=== PATIENT | male | born 1980 | race Caucasian/White ===

== ENCOUNTER 2017-06-13 08:53 | Day surgery (SDC) | payer OTHER ==
[2017-06-13] MEDS ORDERED: ceFAZolin 2 GM/SWFI 2 GM/20 ML SYR IVP ONE (09:09)
[2017-06-13] MEDS ORDERED: LR 1,000 ML IV ONE (09:11)
[2017-06-13] MEDS ORDERED: LIDOCAINE 1% 2 ML INJ ID PRN (09:11)
[2017-06-13 09:17] VITALS: PULSE 71
[2017-06-13] MEDS ORDERED: BUPIVACAINE 0.5% 30 ML SDV ONE (09:30)
[2017-06-13] MEDS ORDERED: MIDAZOLAM 2 MG/2 ML VIAL IVP ONE (10:33)
--- NOTE | 2017-06-13 10:33 | PDANEPAE ---
ANE History of Present Illness Supraumbilical ventral hernia ANE Past Medical History - Cardiovascular History Hx Hypertension: No Hx Arrhythmias: No Hx Chest Pain: No Hx Coronary Artery / Peripheral Vascular Disease: No Hx CHF / Valvular Disease: No Hx Palpitations: No - Pulmonary History Hx COPD: No Hx Asthma/Reactive Airway Disease: No Hx Recent Upper Respiratory Infection: No Hx Oxygen in Use at Home: No Hx Sleep Apnea: No Sleep Apnea Screening Result - Last Documented: Negative - Neurologic History Hx Cerebrovascular Accident: No Hx Seizures: No Hx Dementia: No - Endocrine History Hx Diabetes: No - Renal History Hx Renal Disorders: No - Liver History Hx Hepatic Disorders: No - Neurological & Psychiatric Hx Hx Neurological and Psychiatric Disorders: No - Cancer History Hx Cancer: No - Congenital Disorder History Hx Congenital Disorders: No - GI History Hx Gastrointestinal Disorders: No - Other Health History Other Health History: umbilical hernia-new onset of pain on R side of abd - Chronic Pain History Chronic Pain: No - Surgical History Prior Surgeries: none known ANE Review of Systems Review of Systems: - Exercise capacity METS (RN): 4 METS ANE Patient History - Allergies Allergies/Adverse Reactions: No Allergies [NKDA] Allergy (Verified 06/12/17 17:36) - Home Medications Home medications: none - NPO status NPO Since - Liquids (Date): 06/13/17 NPO Since - Liquids (Time): 08:00 NPO Since - Solids (Date): 06/12/17 NPO Since - Solids (Time): 19:00 - Anes Hx Anes Hx: no prior problems - Smoking Hx Smoking Status: Never smoked ANE Labs/Vital Signs - Vital Signs Blood Pressure: 131/92 Heart Rate: 71 Respiratory Rate: 16 O2 Sat (%): 94 Height: 180.34 cm Weight: 86.183 kg ANE Physical Exam - Airway Neck exam: FROM Mallampati Score: Class 1 Mouth exam: normal dental/mouth exam - Pulmonary Pulmonary: no respiratory distress - Cardiovascular Cardiovascular: regular rate and rhythym - ASA Status ASA Status: I ANE Anesthesia Plan Anesthesia Plan: GA w LMA
[2017-06-13] MEDS ORDERED: LIDOCAINE 2% 5 ML SDV ONE (10:40)
[2017-06-13] MEDS ORDERED: PROPOFOL 200 MG/20 ML VIAL ONE (10:41)
[2017-06-13] MEDS ORDERED: fentaNYL 100 MCG/2 ML INJ ONE ×3 (10:41→12:19)
[2017-06-13] MEDS ORDERED: GLYCOPYRROLATE 0.2 MG/1 ML VIAL ONE (10:42)
[2017-06-13] MEDS ORDERED: METOCLOPRAMIDE 10 MG/2 ML VIAL ONE (10:43)
--- NOTE | 2017-06-13 10:45 | PDHPUP ---
History & Physical Update H&P update statement: This history and physical update is based on an assessment of the patient which was completed after admission or registration (within 24 hours), but prior to the surgery/procedure. H&P update: H&P reviewed & patient examined, no change in patient's condition since H&P completed
[2017-06-13] MEDS ORDERED: ROCURONIUM 50 MG/5 ML VIAL ONE (11:02)
[2017-06-13] MEDS ORDERED: ONDANSETRON 4 MG/2 ML VIAL IVP PRN (11:14)
[2017-06-13] MEDS ORDERED: NALOXONE HCL 0.4 MG/ML INJ IVP PRN (11:14)
[2017-06-13] MEDS ORDERED: PROMETHAZINE HCL 25 MG/ML INJ IVP PRN (11:14)
[2017-06-13] MEDS ORDERED: ONDANSETRON 4 MG/2 ML VIAL ONE ×2 (11:27→14:52)
[2017-06-13] MEDS ORDERED: DEXAMETHASONE 4 MG/ML VIAL ONE (11:27)
[2017-06-13] MEDS ORDERED: HYDROmorphONE/DILAUDID 1 MG/ML INJ ONE (11:55)
--- NOTE | 2017-06-13 11:55 | POSTANESTH ---
Post Anesthetic Evaluation Cardiovascular Status: Tx Hyper/Hypo-tension Respiratory Status: Normal, Stable Level of Consciousness/Mental Status: Can Participate in Eval Pain Control: Inadeq, Add Tx Required Nausea/Vomiting Control: Adequate, Prn Tx Ordered Complications Possibly Related to Anesthesia: None Noted
[2017-06-13] MEDS: fentaNYL 100 MCG/2 ML INJ IVP PRN ×3 (11:57→12:22)
[2017-06-13] MEDS: HYDROmorphONE/DILAUDID 1 MG/ML INJ IVP PRN ×3 (11:58→12:36)
--- NOTE | 2017-06-13 12:00 | POSTOPPROG ---
Post Op Note Date of Operation: 06/13/17 Surgeon: Jose Raul Blanca Electronics Tech: Tracy Solorzano Anesthesiologist: Kolton Cason Anesthesia: GET(General Endotracheal) Pre-op Diagnosis: supraumbilical ventral hernia Post-op Diagnosis: same, and umbilical hernia Procedure: open repair of Vh and umbilical hernia with mesh Inf/Abcess present in the surg proc area at time of surgery?: No EBL: Minimal Complications: none
[2017-06-13] MEDS ORDERED: KETOROLAC 30 MG/1 ML SDV ONE (12:18)
[2017-06-13] MEDS ORDERED: LABETALOL HCL 5 MG/ML 20 ML MDV ONE (12:18)
[2017-06-13] MEDS ORDERED: LABETALOL HCL 5 MG/ML 20 ML MDV IV ONE (12:45)
[2017-06-13] MEDS ORDERED: KETOROLAC 30 MG/1 ML SDV IVP ONE (12:45)
[2017-06-13 13:16] VITALS: TEMP 97.5
[2017-06-13 13:36] VITALS: RESP 15
[2017-06-13] MEDS ORDERED: OXYCODONE/APAP 5/325 TAB PO PRN (14:03)
[2017-06-13 16:12] VITALS: BP 120/73
[2017-06-13 16:34] VITALS: O2SAT 94
--- NOTE | 2017-06-13 20:43 | GOP ---
[f rep st] OPERATIVE REPORT DATE OF OPERATION: 06/13/2017 SURGEON: Jose Raul Blanca MD ELECTROMAGNET CRANE OPERATOR: CLEOPATRA Colby. ANESTHESIOLOGIST: Shan Cason MD. PREOPERATIVE DIAGNOSIS: 1. Ventral hernia. 2. Umbilical hernia. POSTOPERATIVE DIAGNOSIS: 1. Ventral hernia. 2. Umbilical hernia. PROCEDURE PERFORMED: Open repair of umbilical and ventral hernia with mesh. FINDINGS: Patient was found to have a 1 cm umbilical defect with some incarcerated properitoneal fat . He had a much larger ventral midline hernia measuring 5 cm in diameter and was again with properit benson fat. ESTIMATED BLOOD LOSS: Negligible. DESCRIPTION OF PROCEDURE: Patient taken to the operating room where he received satisfactory general endotracheal anesthesia by Dr. Cason. Placed in supine position, prepped and draped in usual sterile fashion. A midline abdominal incision was made, carried through subcutaneous tissue down an d around the umbilicus. The hernia sac was dissected free from surrounding subcutaneous tissue and t hen freed up at the fascial edges of the defect. The excess sac was amputated and removed. The jose cristi was reduced into the abdomen. A subfascial subperitoneal pocket was created. The peritoneum w as reclosed with 3-0 Vicryl. This pocket extended down through the umbilical defect and a piece of C ovidien polyester mesh was placed in the subfascial preperitoneal space. It was anchored in place ar ound the periphery with interrupted 0 Ethibond mattress sutures. A primary defect was then closed si de-to-side with an interrupted 0 Ethibond [id number] sutures and the umbilical defect was closed with 0 Ethibond [id number] sutures. All wounds were infiltrated with 0.5% Marcaine. Hemostasi s was assured. Subcu was closed with a running 2-0 Vicryl suture and the skin with a 4-0 Monocryl carreon bcuticular stitch. He tolerated the procedure well. There were no complications. /[id number]/MODL
== END 2017-06-13 16:31 | disposition home or self-care (01) ==
LOC: FSGY 08:53
PROVIDERS: ATTEND Surgery
PROC: 0WUF0JZ Supplement Abdominal Wall with Synthetic Substitute, Open Approach (ICD-10-PCS; principal; 2017-06-13 10:15)
PROC: 0WQF0ZZ Repair Abdominal Wall, Open Approach (ICD-10-PCS; principal; 2017-06-13 10:15)
DX: K43.9 Ventral hernia without obstruction or gangrene (principal); K42.9 Umbilical hernia without obstruction or gangrene
CPT/HCPCS: C1781; J0690; J1100; J1170; J1885; J2250; J2405; J2704; J2765; J3010; J3490

== ENCOUNTER 2017-11-07 12:09 | Emergency (ER) | payer OTHER ==
[2017-11-07] MEDS ORDERED: NS 1,000 ML IV ONE (13:42)
--- NOTE | 2017-11-07 13:42 | EDPHY ---
General Time Seen by Provider: 11/07/17 13:27 Narrative: CHIEF COMPLAINT: Nausea, vomiting, diarrhea, recent travel HISTORY OF PRESENT ILLNESS: Patient presents with complaints of sudden onset of nausea, vomiting and diarrhea. This happened late last night. He has had 3 or 4 episodes of both. Described as watery and brown an orange. No blood. Subjective fever and chills. Body aches and malaise. He is concerned about flu and malaria as he was recently Sameera. No bloody emesis or stool. No profusely water stool. No chest pain or shortness of breath. No cough. No sore throat. He has been taking his malaria prophylaxis as prescribed and continues to take so. No other associated complaints or modifying factors. REVIEW OF SYSTEMS: Ten systems reviewed and are negative unless otherwise noted in the HPI PCP: Dr. Terrell York SPECIALISTS: None PAST MEDICAL HISTORY: Uncomplicated PAST SURGICAL HISTORY: No recent surgeries SOCIAL HISTORY: Nonsmoker. Occasional alcohol. No drug use. 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 Airway widely patent. Uvula midline. No cervical lymphadenopathy. Neck: Normal inspection, supple, non-tender. No meningeal signs Respiratory: Lungs are clear to auscultation. No wheezing, rhonchi or crackles Cardiovascular: Regular rate and rhythm. No murmur. Gastrointestinal: Abdomen is soft and nontender. No tympany. No rigidity. Bowel sounds symmetric in all 4 quadrants. Neurological: A&O, nonfocal, normal gait Skin: Warm and dry, no rash. No petechiae. No purpura. All skin other than genitalia examined. Extremities: Nontender, no pedal edema Psychiatric: Mood and affect normal DIFFERENTIAL DIAGNOSES: Including but not limited to malaria, influenza, gastroenteritis, enteritis, colitis, diverticulitis, dehydration MDM: 1:40 p.m. Acute nausea, vomiting, diarrhea, fever and chills over the past 12-14 hours. 1:55 p.m. Case discussed with Dr. Alvarez, infectious Disease. We discussed laboratory studies including malaria smear and GI pathogen panel for the diarrhea. He said that he would be happy to discuss further laboratory studies returned 2:40 p.m. CBC reveals mild leukocytosis. Chemistries unremarkable. The smear is pending on the malaria. Influenza pending. 3:15 p.m. Influenza is negative. Chemistry is unremarkable including normal liver enzymes. No discussed with laboratory study regarding his malaria smear. This will be read sometime between 5 and 6:00 p.m.. 3:30 p.m. Patient re-evaluated. I discussed the CBC, chemistry, liver functions, negative influenza test. I discussed the time frame of the malaria severe pathology review. I discussed the stool sample that he is just not provided. I do not feel that he needs to remain in the emergency department for these laboratory studies as his care will not be changed from this. We can contact him with the test result later this evening. Patient is also comfortable this. He has tolerated intake by mouth. His vital signs remained stable. His abdominal exam is benign. He has no vomiting. To be discharged home with 2 forms of nausea medication and instructions to keep phone with him to the week contact him this evening. Also provide the information for [facility] should he need this tomorrow pending the results of the malaria smear 5:45 p.m. Patient's pathology review of Malaria prep is negative. GI pathogen panel reveals enteropathogenic E coli (EPEC) and norovirus. I attempted the notify the patient but he did not answer his phone. I left a message for him to contact the hospital without any other personal information. Dr. Cortes will discuss with the patient. This is a likely self-limiting scenario does not require antibiotics. SUPERVISION: Patient was independently examined, but I discussed the case with my secondary supervising physician Dr. Cortes - History Smoking Status: Never smoked - Objective Vital Signs: Initial Vital Signs Temperature (C) 99.9 F 11/07/17 12:23 Heart Rate 87 11/07/17 12:23 Respiratory Rate 18 11/07/17 12:23 Blood Pressure 110/80 11/07/17 12:23 O2 Sat (%) 94 11/07/17 12:23 O2 Delivery Mode Room Air Allergies/Adverse Reactions: No Allergies [NKDA] Allergy (Verified 11/07/17 12:22) Home Medications: Medication Instructions Recorded Malarone 250/100 mg Tab (*) 11/07/17 Ondansetron Odt [Zofran Odt 4 mg 4 mg PO Q6 PRN #12 tab 11/07/17 (*)] Promethazine HCl [Phenergan 25mg 25 mg PO Q8 PRN #12 tab 11/07/17 (*)] Laboratory Results: Laboratory Results 11/07/17 13:45 11/07/17 13:45 Medications Given: Discontinued Medications Sodium Chloride (Ns) 1,000 mls @ 0 mls/hr IV EDNOW ONE; Wide Open PRN Reason: Protocol Stop: 11/07/17 13:43 Last Admin: 11/07/17 13:53 Dose: 1,000 mls Departure - Departure Disposition: Home, Routine, Self-Care Clinical Impression: Gastroenteritis, Norovirus, Enteropathogenic Escherichia coli infection Condition: Good Instructions: Dehydration (ED), Gastroenteritis (ED), Acute Nausea and Vomiting (ED) Additional Instructions: 1. Zofran and nausea medication as prescribed as needed 2. Promethazine nausea medication as prescribed as needed 3. We will contact you this evening with result of malaria and GI pathogen panel is 4. I provided the [facility] information for you to follow up with this week. He will need to call them for an appointment 5. ED precautions as discussed Referrals: Terrell York MD [Primary Care Provider] - As per Instructions Prescriptions: Ondansetron Odt [Zofran Odt 4 mg (*)] 4 mg PO Q6 PRN #12 tab PRN Reason: Nausea/Vomiting, Use 1st Promethazine HCl [Phenergan 25mg (*)] 25 mg PO Q8 PRN #12 tab PRN Reason: Nausea/Vomiting, Use 1st
[2017-11-07 13:55] LABS: PLATELET COUNT 312 10^3/uL (150-400)
[2017-11-07 15:43] LABS: MALARIAL PREP NONE SEEN (NONE SEEN)
[2017-11-07 16:11] VITALS: BP 116/72
== END 2017-11-07 15:55 | disposition home or self-care (01) ==
DX: A08.11 Acute gastroenteropathy due to Norwalk agent (principal); A04.0 Enteropathogenic Escherichia coli infection; E86.9 Volume depletion, unspecified